=== PATIENT | female | born 1995 | race Caucasian/White ===

== ENCOUNTER 2017-04-02 17:01 | Observation (INO) | payer MEDICAID ==
[~2017-04-02] VITALS: Ht 162.6 cm; Wt 100.7 kg
[2017-04-02 19:49] LABS: CLARITY URINE CLOUDY (CLEAR); COLOR URINE DARK YELLOW (YELLOW); KETONES URINE TRACE (NEGATIVE); LEUKOCYTE ESTERASE URINE 1+ (NEGATIVE); NITRITE URINE NEGATIVE (NEGATIVE); OCCULT BLOOD URINE NEGATIVE (NEGATIVE); PROTEIN URINE NEGATIVE (NEGATIVE); SPECIFIC GRAVITY URINE 1.033 (1.005-1.030); UROBILINOGEN URINE 0.2 E.U./dL (0.2-1.0)
[2017-04-02] MEDS ORDERED: CEFAZOLIN 2,000 MG in SODIUM CHLORIDE 0.9% 100 ML IV NR (21:45)
[2017-04-02] MEDS ORDERED: LACTATED RINGERS 1,000 ML IV SCH (21:45)
== END 2017-04-02 22:00 | disposition left against medical advice (07) ==
LOC: L&D 17:01
PROVIDERS: ADMIT Obstetrics & Gynecology; ATTEND Obstetrics & Gynecology
DX: O26.893 Other specified pregnancy related conditions, third trimester (principal); R10.30 Lower abdominal pain, unspecified; M54.5 Low back pain; Z3A.32 32 weeks gestation of pregnancy
CPT/HCPCS: 81001; 99281; G0378; J0690; J7120; J7050

== ENCOUNTER 2017-04-12 14:23 | Observation (INO) | payer MEDICAID ==
[~2017-04-12] VITALS: Ht 162.6 cm; Wt 99.8 kg
[2017-04-12 14:55] LABS: CLARITY URINE CLOUDY (CLEAR); COLOR URINE YELLOW (YELLOW); KETONES URINE TRACE (NEGATIVE); LEUKOCYTE ESTERASE URINE 3+ (NEGATIVE); NITRITE URINE NEGATIVE (NEGATIVE); OCCULT BLOOD URINE NEGATIVE (NEGATIVE); PH URINE 5.5 (4.5-8.0); PROTEIN URINE NEGATIVE (NEGATIVE); SPECIFIC GRAVITY URINE 1.024 (1.005-1.030)
[2017-04-12] MEDS ORDERED: CEFAZOLIN 2,000 MG in SODIUM CHLORIDE 0.9% 100 ML IV NR (15:30)
[2017-04-12] MEDS ORDERED: LACTATED RINGERS 1,000 ML IV SCH (15:30)
[2017-04-12] MEDS ORDERED: ACETAMINOPHEN 500MG TABLET PO SCH (16:00)
== END 2017-04-12 17:26 | disposition home or self-care (01) ==
LOC: L&D 14:23
PROVIDERS: ADMIT Obstetrics & Gynecology; ATTEND Obstetrics & Gynecology
DX: O62.9 Abnormality of forces of labor, unspecified (principal); O26.893 Other specified pregnancy related conditions, third trimester; R10.9 Unspecified abdominal pain; M54.5 Low back pain; Z3A.35 35 weeks gestation of pregnancy
CPT/HCPCS: 81001; 96361; 96365; 99281; G0378; J0690; J7120; 96360; 96366; J7050

== ENCOUNTER 2017-04-29 13:42 | Observation (INO) | payer MEDICAID ==
[~2017-04-29] VITALS: Ht 162.6 cm; Wt 99.8 kg
[2017-04-29] MEDS ORDERED: PNV1TABL76 MT (14:23)
[2017-04-29 15:14] LABS: CLARITY URINE CLOUDY (CLEAR); COLOR URINE YELLOW (YELLOW); KETONES URINE TRACE (NEGATIVE); LEUKOCYTE ESTERASE URINE 2+ (NEGATIVE); NITRITE URINE NEGATIVE (NEGATIVE); OCCULT BLOOD URINE NEGATIVE (NEGATIVE); PH URINE 6.5 (4.5-8.0); PROTEIN URINE NEGATIVE (NEGATIVE)
[2017-04-29] MEDS ORDERED: LACTATED RINGERS 1,000 ML IV SCH (15:45)
[2017-04-29] MEDS ORDERED: CEFAZOLIN 2,000 MG in SODIUM CHLORIDE 0.9% 100 ML IV NR (16:00)
[2017-05-03] MEDS ORDERED: FERR325T6 PO (17:05)
== END 2017-04-29 17:00 | disposition home or self-care (01) ==
LOC: L&D 13:42
PROVIDERS: ADMIT Obstetrics & Gynecology; ATTEND Obstetrics & Gynecology
DX: O26.893 Other specified pregnancy related conditions, third trimester (principal); R10.30 Lower abdominal pain, unspecified; M54.5 Low back pain; Z3A.37 37 weeks gestation of pregnancy
CPT/HCPCS: 81001; 96365; 99281; G0378; J0690; 96360; J7050